=== PATIENT | female | born 1955 | race Caucasian/White ===

== ENCOUNTER 2021-03-30 09:21 | Emergency (ER) | payer SELFPAY ==
[~2021-03-30] VITALS: Ht 154.9 cm; Wt 65.8 kg
[2021-03-30 09:21] VITALS: BP 181/99
--- NOTE | 2021-03-30 09:21 | NUR ---
Patient BIBA BLS, transferred to bed 1. RN evaluating the patient at bedside.
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
--- NOTE | 2021-03-30 09:36 | NUR ---
Emily Beavers (daughter) [phone].
--- NOTE | 2021-03-30 09:49 | NUR ---
Pt taken to CT via [facility].
--- NOTE | 2021-03-30 09:50 | NUR ---
Patient taken to CT
--- NOTE | 2021-03-30 10:03 | NUR ---
Patient returned from CT
--- NOTE | 2021-03-30 10:06 | NUR ---
apprentice technician at bedside.
[2021-03-30] MEDS ORDERED: ONDANSETRON 4 MG ODT PO ONE (10:10)
[2021-03-30] MEDS ORDERED: KETOROLAC 30 MG/ML VIAL IM ONE (10:25)
[2021-03-30] MEDS: MORPHINE SULFATE 4 MG/ML SYR IM ONE ×2 (10:25→10:32)
--- NOTE | 2021-03-30 10:33 | NUR ---
Patient ambulated with assistance to bathroom.
--- NOTE | 2021-03-30 10:36 | NUR ---
Patient returned from restroom with steady gait, placed in a position of comfort, placed back on bedside improvement director.
--- NOTE | 2021-03-30 10:37 | NUR ---
C collar removed by Dr. Birch
--- NOTE | 2021-03-30 10:42 | NUR ---
Per patient request I called her daughter with an update. Emily Beavers [phone]
[2021-03-30] MEDS ORDERED: NAPR-54 PO (11:13)
[2021-03-30] MEDS ORDERED: ACET-10509 PO (11:13)
--- NOTE | 2021-03-30 11:25 | NUR ---
Patient discharged with v/s stable. Written and verbal after care instructions given and explained. Patient alert, oriented and verbalized understanding of instructions. Ambulatory with steady gait. All questions addressed prior to discharge. ID band removed. Patient advised to follow up with PMD. Rx of Tylenol Extra Strength, Naprosyn given. Patient educated on indication of medication including possible reaction and side effects. Opportunity to ask questions provided and answered.
[2021-03-30 11:31] VITALS: BP 152/84
== END 2021-03-30 11:25 | disposition home or self-care (01) ==
LOC: MED 09:21 → EDSEX 09:21 → MED 11:25
DX: S16.1XXA Strain of muscle, fascia and tendon at neck level, initial encounter (principal); Z88.0 Allergy status to penicillin; V98.8XXA Other specified transport accidents, initial encounter; Y93.89 Activity, other specified; Y92.89 Other specified places as the place of occurrence of the external cause; Y99.8 Other external cause status
CPT/HCPCS: 70450; 71045; 72125; 96372; 99285; J1885; Q0162; J2270